=== PATIENT | female | born 1990 | race Caucasian/White ===

== ENCOUNTER 2024-10-31 09:22 | Day surgery (SDC) | payer BC ==
[2024-10-31 10:16] LABS: *BILIRUBIN,URIN NEGATIVE (NEGATIVE); *BLOOD, URINE 3+ (NEGATIVE); *CLARITY,URINE CLEAR (CLEAR); *COLOR,URINE YELLOW (YELLOW); *KETONES,URINE NEGATIVE (NEGATIVE); *PROTEIN,URINE NEGATIVE (NEGATIVE); *UROBILINOGEN,URINE 0.2 E.U./dl (NORMAL); LEUKOCYTE ESTERASE ,URINE NEGATIVE (NEGATIVE); NITRITE, URINE NEGATIVE (NEGATIVE); PH,URINE 5.5 (5.0-8.0); UGLUCOSE NEGATIVE (NEGATIVE)
[2024-10-31] MEDS ORDERED: BUPIVACAINE 0.25% 30 ML VIAL ONE (10:16)
[2024-10-31 10:23] LABS: *URINE HCG, QUAL NEGATIVE (NEGATIVE)
[2024-10-31 10:28] LABS: BACTERIA,URINE MODERATE /HPF (NONE SEEN); SQUAMOUS EPITHELIAL CELL,UR MANY /HPF (NONE SEEN); WBC,URINE 0-3 /HPF (0-3)
[2024-10-31 10:41] LABS: CALCIUM 9.2 mg/dL (8.5-10.1); CREATININE 0.8 mg/dL (0.6-1.3); POTASSIUM 3.8 mmol/L (3.5-5.1)
[2024-10-31] MEDS ORDERED: FENTANYL CITRATE 100 MCG/2 ML AMPUL ONE ×2 (10:56→12:11)
[2024-10-31] MEDS ORDERED: MIDAZOLAM HCL 2 MG/2 ML VIAL ONE (10:56)
[2024-10-31] MEDS ORDERED: PROPOFOL 200 MG/20 ML BOTTLE ONE (12:05)
[2024-10-31] MEDS ORDERED: HYDROMORPHONE 1 MG/1 ML DISP.SYRIN IVP PRN (12:15)
[2024-10-31] MEDS: FENTANYL CITRATE 100 MCG/2 ML AMPUL IV PRN (12:18)
[2024-10-31 14:00] VITALS: TEMP 97
[2024-11-06] MEDS ORDERED: CEFAZOLIN 1 G VIAL ONE (10:45)
== END 2024-10-31 14:20 | disposition home or self-care (01) ==
LOC: DS 09:22
PROVIDERS: ATTEND Otolaryngology
DX: J35.01 Chronic tonsillitis (principal); R13.14 Dysphagia, pharyngoesophageal phase; L29.9 Pruritus, unspecified; Z87.440 Personal history of urinary (tract) infections; Z79.899 Other long term (current) drug therapy; Z98.890 Other specified postprocedural states
CPT/HCPCS: 36415; 42826; 80048; 81001; 84703; 87086; 88304; J0330; J0690; J1100; J2250; J2310; J2405; J3010; J3490; J7120; A4663